=== PATIENT | female | born 1940 | race Caucasian/White ===

== ENCOUNTER 2021-04-14 13:56 | Outpatient (CLI) | payer MEDICARE, OTHER | END 2021-04-14 13:57 | disposition home or self-care (01) | LOC: COV 13:56 | PROVIDERS: ATTEND Family Medicine | DX: R53.83 Other fatigue (principal); R07.0 Pain in throat; Z20.822 Contact with and (suspected) exposure to COVID-19 ==

== ENCOUNTER 2021-07-22 10:38 | Outpatient (CLI) | payer MEDICARE, OTHER | END 2021-07-22 10:39 | disposition critical access hospital (66) | LOC: EMS 10:38 | DX: M25.512 Pain in left shoulder (principal); W00.0XXA Fall on same level due to ice and snow, initial encounter; Y92.009 Unspecified place in unspecified non-institutional (private) residence as the place of occurrence of the external cause | CPT/HCPCS: A0425; A0427 ==

== ENCOUNTER 2021-07-22 10:55 | Emergency (ER) | payer MEDICARE, OTHER ==
[2021-07-22] MEDS ORDERED: HYDROmorphone 1 MG/ML CARPUJECT IVP STA (11:25)
[2021-07-22] MEDS ORDERED: ONDANSETRON 4 MG/2 ML VIAL IVP STA (11:26)
--- NOTE | 2021-07-22 11:28 | ED Physician Documentation ---
History of Present Illness - Stated complaint Stated Complaint: GLF/L SHOULDER PX - Chief complaint Chief Complaint: Trauma Ext - History obtained from History obtained from: Patient - History of Present Illness Timing: Today Pain level max: 8 Pain level now: 8 - Additonal information Additional information: 80-year-old female, right-handed, presents to the emergency department stating that she slipped and fell in her driveway today. Landed on her left shoulder. Complains of left shoulder and left arm pain. Initially had numbness, now has pain. Worse with movement, better with rest. Not on blood thinners. No headache, neck, back pain. No hip pain. No other injuries. Review of Systems Constitutional: denies: Fever, Chills GI: denies: Vomiting, Diarrhea Skin: denies: Rash Musculoskeletal: denies: Neck pain, Back pain Neurologic: denies: Headache PD PAST MEDICAL HISTORY - Past Medical History Past Medical History: Yes Cardiovascular: None Respiratory: None Endocrine/Autoimmune: None GI: GERD, Hiatal hernia : None HEENT: None Psych: None Musculoskeletal: Osteoarthritis Derm: None - Past Surgical History General: Colonoscopy HEENT: Tonsil/Adenoidectomy - Present Medications Home Medications: Ambulatory Orders Medication Instructions Recorded Confirmed Meloxicam 7.5 mg ORAL DAILY 08/16/14 08/16/14 Oxycodone HCl [Roxicodone] 5 - 10 mg PO Q6H PRN #14 tablet 07/22/21 - Allergies Allergies/Adverse Reactions: Allergies Allergy/AdvReac Type Severity Reaction Status Date / Time azithromycin [From Zithromax] Allergy Edema Verified 07/22/21 11:16 PD ED PE NORMAL - Vitals Vital signs reviewed: Yes - General General: Alert and oriented X 3, No acute distress - HEENT HEENT: Moist mucous membranes - Neck Neck: Supple, no meningeal sign, C-Spine cleared by NEXUS criteria - Cardiac Cardiac: RRR - Respiratory Respiratory: No respiratory distress, Clear bilaterally - Abdomen Abdomen: Soft, Non tender, Non distended - Derm Derm: Warm and dry - Extremities Extremities: Other (Tender to palpation over the left glenohumeral joint and mid humerus. Mild swelling. Neurovascular intact. Otherwise normal examination of the left upper extremity and clavicle) - Neuro Neuro: Alert and oriented X 3 - Psych Psych: Normal mood, Normal affect Results - Vitals Vitals: Vital Signs - 24 hr 07/22/21 07/22/21 11:12 12:41 Temperature 36.7 C Heart Rate 66 67 Respiratory 16 14 Rate Blood Pressure 137/85 H 139/73 H O2 Saturation 97 94 Oxygen O2 Source Room air - Rads (name of study) Left shoulder x-ray Radiology: Final report received, EMP read contemporaneously, See rad report (Mildly comminuted, impacted fracture of the proximal left humerus. ) L humerus xray Radiology: Final report received, EMP read contemporaneously, See rad report (Mildly comminuted, impacted fracture of the proximal left humerus. ) PD MEDICAL DECISION MAKING - ED course Complexity details: reviewed results, re-evaluated patient, considered differential, d/w patient ED course: 80-year-old female with an impacted mildly comminuted fracture of the proximal left humerus at the level of the humeral neck. Placed in a sling. Pain well controlled. Neurovascular intact including the axillary nerve. We will have her follow-up with orthopedics for further care. I am prescribing a short course of short-acting opioid pain medication for this patient. I have reviewed the patients [employer] and no concerning findings were noted. I have discussed that the opioids are for short term therapy only, and will not be refilled from the ED. patient counseled regarding signs and symptoms for which I believe and urgent re-evaluation would be necessary. Patient with good understanding of and agreement to plan and is comfortable going home at this time This document was made in part using voice recognition software. While efforts are made to proofread this document, sound alike and grammatical errors may o ccur. Departure - Departure Disposition: 01 Home, Self Care Clinical Impression: Fracture of humeral head, closed Qualifiers: Encounter type: initial encounter Laterality: left Qualified Code(s): S42.292A - Other displaced fracture of upper end of left humerus, initial encounter for closed fracture Condition: Good Instructions: ED Fx Shoulder, ED Sling and Swathe Follow-Up: SHEYLA DIOR MD [Primary Care Provider] - Within 1 week [facility] [Provider Group] - Within 1 week Prescriptions: Oxycodone HCl [Roxicodone] 5 - 10 mg PO Q6H PRN #14 tablet PRN Reason: Pain Comments: Please follow-up with orthopedics in 1 week for further care. Return if you worsen. Your prescriptions were sent to [facility] in [place]. You do have a humeral head fracture that will need close follow-up. I am prescribing a short course of narcotic pain medication for you. These are potentially dangerous and addictive medications that should be used carefully. These medications may constipate you. Take an btxe-com-vwywtok stool softener (docusate) twice daily with plenty of water while taking these medications. If you go 24 hours without a bowel movement, take alfc-vqc-ltntoka miralax, per package instructions. Do not drink or drive while taking these medications. If you received narcotic or sedating medications while in the emergency department, do not drive for 24 hours. Store this medication in a safe, secure place and out of reach of children. It is a violation of federal law to give or sell this medication to another person or to use in a manner other than prescribed. The ED will not refill narcotic prescriptions, including prescriptions lost or stolen. To dispose of unwanted medications: 1. [facility] at [address] in [place] has a medication drop box. They accept prescription medications (in pill form) Wednesday through Wednesday 9:00 a.m. to 5:00 p.m. 2. The [facility] [employer] accepts prescription medications (in pill form only) for disposal year round. Call for more information. 3. Contact the [facility] for the next [facility] sponsored prescription drug collection event. , [phone], or [phone]; Discharge Date/Time: 07/22/21 12:42
[2021-07-22] MEDS ORDERED: oxyCODONE 5 MG TABLET PO STA (12:16)
[2021-07-22 12:42] VITALS: BP 139/73
--- NOTE | 2021-07-22 12:56 | XRAY Report ---
PROCEDURE: Humerus LT INDICATIONS: fall, L arm pain TECHNIQUE: 3 views of the humerus were acquired. COMPARISON: None FINDINGS: Bones: There is a comminuted, mildly impacted fracture involving the proximal left humerus at the lev el of the humeral neck. No other acute fractures seen. Glenohumeral alignment is maintained. Moderate hypertrophic osteoarthritic changes of the left acromioclavicular joint. Soft tissue calcifications overlying the superolateral left humeral head likely from sequela of chronic calcific rotator cuff te ndinopathy. No suspicious bony lesions. Soft tissues: No suspicious soft tissue calcifications. IMPRESSION: Comminuted, mildly impacted fracture of the proximal left humerus Reviewed by: Harley Lilly MD on 07/22/2021 12:23 PM PST Approved by: Harley Lilly MD on 07/22/2021 12:23 PM PST Station ID: [id number]
--- NOTE | 2021-07-22 12:56 | XRAY Report ---
PROCEDURE: XR Shoulder >= 2 Views INDICATIONS: Trauma TECHNIQUE: 3 views of the shoulder were acquired. COMPARISON: None. FINDINGS: Bones: There is a mildly comminuted, impacted fracture of the proximal left humerus at the level of t he humeral neck. Glenohumeral alignment is maintained. Degenerative changes of the acromioclavicular joint. Soft tissue calcifications project over the superolateral left humeral head likely sequela of chronic calcific rotator cuff tendinopathy. No suspicious bony lesions. Visualized ribs appear intac t. Soft tissues: No suspicious soft tissue calcifications. IMPRESSION: Mildly comminuted, impacted fracture of the proximal left humerus. Reviewed by: Harley Lilly MD on 07/22/2021 12:24 PM PST Approved by: Harley Lilly MD on 07/22/2021 12:24 PM PST Station ID: [id number]
== END 2021-07-22 12:42 | disposition home or self-care (01) ==
LOC: EDUNIT# → ED 10:55
DX: S42.215A Unspecified nondisplaced fracture of surgical neck of left humerus, initial encounter for closed fracture (principal); W00.0XXA Fall on same level due to ice and snow, initial encounter; Y92.008 Other place in unspecified non-institutional (private) residence as the place of occurrence of the external cause
CPT/HCPCS: 73030; 73060; 96374; 96375; 99283; A9270; J1170

== ENCOUNTER 2022-05-25 14:27 | Outpatient (CLI) | payer MEDICARE, OTHER ==
--- NOTE | 2022-05-27 16:26 | Mammography Report ---
BILATERAL DIGITAL SCREENING MAMMOGRAM 3D/2D: 05/25/2022 CLINICAL: Routine screening. Comparison is made to exams dated: 06/21/2019 mammogram, 10/15/2014 mammogram, 08/23/2013 mammogram - [facility], 08/23/2013 [facility], 05/09/2012 mammogram, and 01/14/2011 mammogram - [facility]. There are scattered areas of fibroglandular density in both breasts (category b / 25%-50% glandular t issue). No significant masses, calcifications, or other findings are seen in either breast. There has been no significant interval change. IMPRESSION: NEGATIVE There is no mammographic evidence of malignancy. A 1 year screening mammogram is recommended. Based on the Tyrer Cuzick model (a risk assessment model) the patients lifetime risk is 1.3% and her 10 year risk is 0.0%. According to the ACR, ACS, and NCCN guidelines, an annual breast MRI exam nolvia g with mammogram is recommended if the patients lifetime risk is 20% or greater. This exam was interpreted at Station ID: [id number]. NOTE: For mammograms, a report in lay terms will be sent to the patient. Approximately 15% of breast malignancies will not be visualized mammographically. In the management of a palpable breast mass, a negative mammogram must not discourage biopsy of a clinically suspicious lesion. Electronically Signed By: Robin hernandes/penrad:05/27/2022 10:44:55 copy to: Jolene Dhaliwal ACR BI-RADS Category 1: Negative 3341F PARENCHYMAL PATTERN: (A) - The breast(s) demonstrate(s) scattered fibroglandular densities. BI-RADS CATEGORY: (1) - 1 RECOMMENDATION: (ANNUAL) - Recommend routine annual screening mammography. [id number] 1 year screening LATERALITY: (B)
== END 2022-05-25 14:28 | disposition home or self-care (01) ==
LOC: DI.N 14:27
DX: Z12.31 Encounter for screening mammogram for malignant neoplasm of breast (principal)

== ENCOUNTER 2023-01-14 07:04 | Outpatient (CLI) | payer MEDICARE, OTHER ==
[2023-01-14 07:26] LABS: BASOPHILS % (AUTO) 0.7 %; EOSINOPHILS # (AUTO) 0.2 10^3/uL (0.0-0.7); EOSINOPHILS % (AUTO) 2.7 %; HCT - HEMATOCRIT 38.7 % (37.0-47.0); HGB - HEMOGLOBIN 12.5 g/dL (12.0-16.0); LYMPHOCYTES # (AUTO) 1.7 10^3/uL (1.5-3.5); LYMPHOCYTES % (AUTO) 31.5 %; MEAN CORPUSCULAR HEMOGLOBIN 28.5 pg (27.0-31.0); MEAN CORPUSCULAR HGB CONC 32.3 g/dL (32.0-36.0); MEAN CORPUSCULAR VOLUME 88.2 fL (81.0-99.0); MEAN PLATELET VOLUME 9.8 fL (7.9-10.8); MONOCYTES # (AUTO) 0.6 10^3/uL (0.0-1.0); MONOCYTES % (AUTO) 10.6 %; NEUTROPHILS % (AUTO) 54.3 %; PLT - PLATELET COUNT 284 10^3/uL (130-450); RED BLOOD COUNT 4.39 10^6/uL (4.20-5.40); RED CELL DISTRIBUTION WIDTH 15.1 % (12.0-15.0); WHITE BLOOD COUNT 5.5 x10^3/uL (4.8-10.8)
[2023-01-14 07:40] LABS: ALBUMIN/GLOBULIN RATIO 1.3 (1.0-2.2); ALKALINE PHOSPHATASE 61 IU/L (42-121); ALT ALANINE AMINOTRANSFERASE 13 IU/L (10-60); AST ASPARTATE AMINOTRANSFERASE 18 IU/L (10-42); BILIRUBIN,TOTAL 0.2 mg/dL (0.2-1.0); BUN - BLOOD UREA NITROGEN 17 mg/dL (6-20); CARBON DIOXIDE - CO2 30 mmol/L (21-32); CHLORIDE 104 mmol/L (101-111); CHOL/HDL RATIO 3.2 (<4.4); CHOLESTEROL 196 mg/dL; CREATININE 0.6 mg/dL (0.4-1.0); GFR - MDRD 96 (>89); GLUCOSE 106 mg/dL (70-100); HDL CHOLESTEROL 62 mg/dL; LDL CHOLESTEROL,CALCULATED 124 mg/dL; POTASSIUM 3.3 mmol/L (3.5-5.0); SODIUM 140 mmol/L (135-145); TRIGLYCERIDES 48 mg/dL; VLDL CHOLESTEROL 10 mg/dL
== END 2023-01-14 07:05 | disposition home or self-care (01) ==
LOC: LAB 07:04
PROVIDERS: ATTEND Internal Medicine
DX: M11.861 Other specified crystal arthropathies, right knee (principal); D64.9 Anemia, unspecified; Z13.220 Encounter for screening for lipoid disorders
CPT/HCPCS: 36415; 80053; 80061; 83721; 85025

== ENCOUNTER 2023-07-09 22:26 | Emergency (ER) | payer MEDICARE, OTHER ==
--- NOTE | 2023-07-10 00:30 | ED Physician Documentation ---
PD HPI HEAD INJURY - Stated complaint Stated Complaint: HIT HEAD - Chief complaint Chief Complaint: Trauma Hd/Nk - History obtained from History obtained from: Patient - Additional information Additional information: HPI from patient. 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 She had generalized headache although most pronounced at area of injury (right parietoociput, which improved but did not resolve, until today when it has steadily been worsening PD PAST MEDICAL HISTORY - Past Medical History Past Medical History: Yes Cardiovascular: None Respiratory: None Endocrine/Autoimmune: None GI: GERD, Hiatal hernia : None HEENT: None Psych: None Musculoskeletal: Osteoarthritis Derm: None - Past Surgical History Past Surgical History: Yes General: Colonoscopy HEENT: Tonsil/Adenoidectomy - Present Medications Home Medications: Ambulatory Orders Medication Instructions Recorded Confirmed Meloxicam 7.5 mg ORAL DAILY 08/16/14 08/16/14 Oxycodone HCl [Roxicodone] 5 - 10 mg PO Q6H PRN #14 tablet 07/22/21 - Allergies Allergies/Adverse Reactions: Allergies Allergy/AdvReac Type Severity Reaction Status Date / Time azithromycin [From Zithromax] Allergy Edema Verified 07/09/23 22:34 - Social History Does the pt smoke?: No Smoking Status: Never smoker Does the pt drink ETOH?: No Does the pt have substance abuse?: No - Immunizations Immunizations are current?: Yes PD ED PE NORMAL - Vitals Vital signs reviewed: Yes - General General: Alert and oriented X 3, No acute distress, Well developed/nourished - HEENT HEENT: Atraumatic, PERRL, EOMI, Moist mucous membranes - Neck Neck: No bony TTP - Neuro Neuro: Alert and oriented X 3, No motor deficit, No sensory deficit, Normal speech Eye Opening: Spontaneous Motor: Obeys Commands Verbal: Oriented GCS Score: 15 Results - Vitals Vitals: Oxygen O2 Source Room air - Rads (name of study) CTH Relevant Findings:: Prelim report reviewed, See rad report PD Medical Decision Making - ED course Complexity details: reviewed results, re-evaluated patient, considered differential, d/w patient ED course: Presents due to worsening BATEMAN after head injury a few days ago. CTH is unremarkable; specifically, no evidence of skull fracture, ICH. On reevaluation, patient continues to be in NAD. Results d/w patient, return precautions r eviewed. She declines analgesics. Departure - Departure Disposition: 01 Home, Self Care Clinical Impression: Head injury Qualifiers: Encounter type: initial encounter Qualified Code(s): S09.90XA - Unspecified injury of head, initial encounter Condition: Good Instructions: ED Head Injury Closed Comments: There are no concerning findings on tonight's CT scan of your head. Take tylenol or ibuprofen per label instructions ([id number]) as needed for headache. Forms: PCP List Discharge Date/Time: 07/10/23 03:40
[2023-07-10 03:41] VITALS: BP 147/77; O2SAT 98
--- NOTE | 2023-07-10 07:43 | CT Report ---
PROCEDURE: HEAD WO INDICATIONS: fall several days ago, worsening BATEMAN TECHNIQUE: Noncontrast 4.5 mm thick angled axial sections acquired from the foramen magnum to the vertex. For r adiation dose reduction, the following was used: automated exposure control, adjustment of mA and/or kV according to patient size. COMPARISON: None. FINDINGS: Image quality: Excellent. CSF spaces: Basal cisterns are patent. No extra-axial fluid collections. Ventricles are normal in size and shape. Brain: No midline shift. No intracranial masses or hemorrhage. Azul-white matter interface is norm al. Leukoaraiosis, commonly caused by chronic small vessel ischemic disease. Age-related volume loss . Skull and face: Calvarium and visualized facial bones are intact, without suspicious lesions. Sinuses: Visualized sinuses and mastoids are clear. IMPRESSION: No acute intracranial pathology. Findings are concordant with preliminary interpretation provided by [facility]. Reviewed by: Agapito Vincent MD on 07/10/2023 7:42 AM PST Approved by: Agapito Vincent MD on 07/10/2023 7:42 AM PST Station ID: [id number]
== END 2023-07-10 03:40 | disposition home or self-care (01) ==
LOC: ED 22:26
DX: S09.90XA Unspecified injury of head, initial encounter (principal); W18.30XA Fall on same level, unspecified, initial encounter
CPT/HCPCS: 99283; 99284

== ENCOUNTER 2023-10-07 13:19 | Outpatient (CLI) | payer MEDICARE, OTHER ==
[~2023-10-07 13:19] MED LIST: GADOTERATE MEGLUMINE 7.5 MMOL/15 ML VIAL ONE
[2023-10-07 14:04] LABS: CREATININE 0.7 mg/dL (0.6-1.3)
[2023-10-07] MEDS: GADOTERATE MEGLUMINE 7.5 MMOL/15 ML VIAL IVP ONE (14:51)
--- NOTE | 2023-10-07 16:30 | MRI Report ---
PROCEDURE: Brain W/WO INDICATIONS: POST CONCUSSION SYN CONTRAST: CLARISCAN 13.6 ML TECHNIQUE: Noncontrast axial T1 spin echo, axial T2 fast spin echo, sagittal and axial FLAIR, coronal T2 fast sp in echo, axial gradient echo, axial diffusion and ADC through the brain. After the administration of contrast, axial and coronal T1 spin echo with fat saturation through the brain. COMPARISON: None. FINDINGS: Image quality: Excellent. CSF spaces: Basal cisterns are patent. No extra-axial fluid collections. Ventricles are normal in size and shape. Brain: No midline shift. No intracranial bleeds or masses. No abnormal intracranial enhancement. There is cerebral volume loss for age. There is periventricular white matter chronic small vessel is chemic change. The brainstem appears normal. Diffusion-weighted images demonstrate no acute ischemi c insults. No chronic ischemic insults. Normal intravascular flow voids are present. Skull and face: Calvarial marrow is normal in signal. Orbits appear normal. Sinuses: Sinuses and mastoids appear clear. IMPRESSION: 1. Volume loss and small vessel ischemic disease. 2. No acute intracranial abnormality. 3. No recent infarct. Reviewed by: Tracy Sanchez MD on 10/07/2023 4:29 PM PDT Approved by: Tracy Sanchez MD on 10/07/2023 4:29 PM PDT Station ID: [id number]
== END 2023-10-07 13:20 | disposition home or self-care (01) ==
LOC: DI 13:19
PROVIDERS: ATTEND Physician Assistant Medical
DX: F07.81 Postconcussional syndrome (principal); G31.89 Other specified degenerative diseases of nervous system; I67.82 Cerebral ischemia
CPT/HCPCS: 36415; 82565

== ENCOUNTER 2024-01-03 13:43 | Outpatient (CLI) | payer MEDICARE, OTHER ==
[2024-01-03 13:54] LABS: BASOPHILS % (AUTO) 0.5 %; EOSINOPHILS # (AUTO) 0.1 10^3/uL (0.0-0.7); EOSINOPHILS % (AUTO) 1.4 %; HCT - HEMATOCRIT 37.3 % (37.0-47.0); HGB - HEMOGLOBIN 11.9 g/dL (12.0-16.0); LYMPHOCYTES # (AUTO) 1.8 10^3/uL (1.5-3.5); LYMPHOCYTES % (AUTO) 30.4 %; MEAN CORPUSCULAR HEMOGLOBIN 28.2 pg (27.0-31.0); MEAN CORPUSCULAR HGB CONC 31.9 g/dL (32.0-36.0); MEAN CORPUSCULAR VOLUME 88.4 fL (81.0-99.0); MEAN PLATELET VOLUME 9.3 fL (7.9-10.8); MONOCYTES # (AUTO) 0.6 10^3/uL (0.0-1.0); MONOCYTES % (AUTO) 10.4 %; NEUTROPHILS # (AUTO) 3.3 10^3/uL (1.5-6.6); NEUTROPHILS % (AUTO) 57.1 %; PLT - PLATELET COUNT 295 10^3/uL (130-450); RED BLOOD COUNT 4.22 10^6/uL (4.20-5.40); RED CELL DISTRIBUTION WIDTH 14.8 % (12.0-15.0); WHITE BLOOD COUNT 5.8 x10^3/uL (4.8-10.8)
[2024-01-03 14:29] LABS: FERRITIN 76.7 ng/mL (11.0-306.8)
== END 2024-01-03 13:44 | disposition home or self-care (01) ==
LOC: LAB 13:43
PROVIDERS: ATTEND Internal Medicine
DX: D64.9 Anemia, unspecified (principal); R53.83 Other fatigue
CPT/HCPCS: 36415; 82607; 82728; 83540; 84466; 85025